=== PATIENT | female | born 1990 | race Caucasian/White ===

== ENCOUNTER 2017-07-09 00:55 | Inpatient (IN) | payer OTHER, SELFPAY ==
[2017-07-09 01:28] VITALS: BMI 27.4
[2017-07-09] MEDS ORDERED: Promethazine HCl 25 MG/ML VIAL IM/IV PRN (01:44)
--- NOTE | 2017-07-09 01:46 | PDOC.LDHP ---
Labor and Delivery H&P Chief complaint: other (HX CS X 1 and told was cleraed for trial of labor after cesrean, patient desires TOLAC.) HPI: 27 yo with prior CS x 1 in [place] for failed induction in past, due to PIH, here for contractions. She had last [place] in [place], and no care here yet. [place] [facility]. No [place], no vision changes, no LOF, no RUQ discomfort. States this child has isolated 2 vessel cord. Current gestational age (weeks): 38 (6 days) Due date: 07/12/17 Grav: 2 Para: 1 OB History Details: Last was CS in [facility]. That baby was adopted out. Current complications: none (isolated 2 vessel cord), other Current medications: pre- vitamins Previous surgical history: low tranverse CS (no record here but states cleared for TOLAC by them.) Allergies/Adverse Reactions: Allergies Allergy/AdvReac Type Severity Reaction Status Date / Time No Known Allergies Allergy Unverified 07/09/17 01:19 - Physical Exam Vital signs reviewed and normal: yes (BP 130/81) Heart: RRR Lungs: CTAB Abdomen: gravid Extremeties: no edema FHT: category 1 - Vaginal Exam cm dilated: 1 Effacement: 50% Station: -2 - Assessment Latent labor, desires TOLAC, isolated 2 vessel cord. - Plan Plan: observation in L&D, informed consent obtained, other (We will observe for now. No CS op note available but told she could have TOLAC by her verbal report. Obs for at least 2 hours, and if no progress...close outpatient follow up.)
--- NOTE | 2017-07-09 02:04 | PDOC.EVN ---
Event Note - Event Note Event Note: TOLAC CONSENT: TOLAC discussed with patient. Risks and benefits discussed. Patient cleared for TOLAC by prior MDs. Risks of uterine injury (rupture) and morbidity discussed as possible but rare events. Possible need for urgent VS, blood transfusion, discussed with her. Patient desires TOLAC after informed consent.
[2017-07-09 02:35] LABS: #Eosinphils 0.1 thou/uL (0.0-0.7); #Lymphocytes 1.4 thou/uL (1.20-3.40); #Monocytes 0.6 thou/uL (0.11-0.59); #Neutrophils 9.6 thou/uL (1.40-6.50); %Basophils 0.2 % (0.0-1.0); %Lymphocytes 12.2 % (21.0-51.0); %Monocytes 5.4 % (0.0-10.0); %Neutrophils 81.3 % (42.0-75.0); Hemoglobin 12.9 g/dL (12.0-16.0); Mean Corpuscular HGB CONC 35.1 g/dL (32.0-36.0); Mean Corpuscular Hemoglobin 30.6 pg (27.0-31.0); Mean Corpuscular Volume 87.2 fl (81.0-99.0); Mean Platelet Volume 8.9 fL (7.4-10.4); Platelet Count 121 thou/uL (130-400); RBC Distribution Width 11.7 % (11.5-14.5); Red Blood Cell (RBC) Count 4.23 mill/uL (4.20-5.40); White Blood Cell (WBC) Count 11.7 thou/uL (4.8-10.8)
[2017-07-09 03:38] LABS: HBSAg Index 0.27 S/CO (0-0.99); HIV (1/2) Antibody/Antigen Non-Reactive (NonReactive); HIV 1/2 INDEX 0.46 S/CO (<1.00); Hep B Surf Ag Non-Reactive S/CO (NonReactive)
[2017-07-09 04:37] LABS: Syphilis Antibody Nonreactive (Nonreactive)
[2017-07-09] MEDS ORDERED: HYDROcodone/Acetaminophen 5/325 mg Tablet PO PRN ×2 (05:16)
[2017-07-09] MEDS ORDERED: Lidocaine 1% (PF) 30 ML VIAL SC PRN (05:16)
[2017-07-09] MEDS ORDERED: Promethazine HCl 25 MG/ML VIAL IM PRN ×2 (05:16→10:11)
[2017-07-09] MEDS ORDERED: Ibuprofen 800 MG TAB PO PRN (05:16)
--- NOTE | 2017-07-09 05:20 | PDOC.EVN ---
Event Note - Event Note Event Note: @0515: Admit note: Patient still has not changed her cervix but she is hurting with each contraction, and they are regular. We will admit her for TOLAC and for allen management. GBS unknown, will use risk factor protocol (no risk factors at this point).
[2017-07-09] MEDS: Lactated Ringer's 1,000 ML IV SCH ×3 (06:22→12:35)
[2017-07-09] MEDS ORDERED: Bupivacaine 0.5% 20 ML, Fentanyl 400 MCG in Sodium Chloride 0.9% 72 ML EPIDURAL SCH (07:15)
[2017-07-09] MEDS ORDERED: [UNRECOGNIZED DRUG - REMARK] FS SCH (07:15)
[2017-07-09] MEDS ORDERED: Morphine 10 MG/ML VIAL ONE (09:10)
[2017-07-09] MEDS ORDERED: Morphine 4 MG/ML Carpuject SLOW IVP SCH (09:15)
[2017-07-09] MEDS: Ondansetron HCl/PF 4 MG/2 ML Vial IVP PRN ×2 (09:25→15:40)
[2017-07-09] MEDS ORDERED: Morphine 2 MG/ML SYRINGE SLOW IVP SCH (09:45)
[2017-07-09] MEDS ORDERED: diphenhydrAMINE 50 MG/ML VIAL IVP PRN (10:11)
[2017-07-09] MEDS ORDERED: Naloxone HCl 0.4 mg/ml Vial IVP PRN ×2 (10:11)
[2017-07-09] MEDS ORDERED: Ondansetron HCl/PF 4 MG/2 ML Vial IVP PRN ×2 (10:11→18:16)
[2017-07-09] MEDS ORDERED: Lactated Ringer's 500 ML IV PRN (10:11)
[2017-07-09] MEDS ORDERED: ePHEDrine/0.9% NaCl/PF SYRINGE 50 mg/10 ml SLOW IVP PRN (10:11)
[2017-07-09] MEDS ORDERED: Acetaminophen 325 MG TAB PO PRN (10:11)
[2017-07-09] MEDS ORDERED: Eucerin (Mineral Oil/Petrolatum,White) 30 gm Jar TOP PRN (10:11)
[2017-07-09] MEDS ORDERED: Communication Order-Pharmacy FS SCH (10:15)
[2017-07-09] MEDS ORDERED: Fentanyl 4mcg/Marcaine 0.1% Cassette 100 ML EPIDURAL SCH (10:15)
[2017-07-09] MEDS: Morphine 2 MG/ML SYRINGE SLOW IVP SCH ×3 (13:54→17:52)
[2017-07-09] MEDS: LR / Pitocin 40 units/1000 ml 1,000 ML IV PRN ×2 (16:29→17:19)
--- NOTE | 2017-07-09 17:05 | OP ---
DATE OF ENCOUNTER: 07/09/2017 FINDINGS: The patient delivered a male by uncomplicated term spontaneous vaginal delivery on 07/09/2017 at 1552. Apgars were 8 and 9. Weight is unavailable at time of dictation. Placenta deli lindsey spontaneously followed by Pitocin infusion. There were no lacerations. ESTIMATED BLOOD LOSS: [address] Phillips is the delivering physician. Mother and baby are stable and the room in the immediate po stpartum.
[2017-07-09] MEDS ORDERED: Adacel (T-DAP) 0.5 ML VIAL IM ONE (18:16)
[2017-07-09] MEDS ORDERED: Lanolin Ointment 7 GM TUBE TOP PRN (18:16)
[2017-07-09] MEDS ORDERED: LR / Pitocin 40 units/1000 ml 1,000 ML IV SCH (18:16)
[2017-07-09] MEDS ORDERED: Benzocaine/Menthol 20-0.5% 60 ML CAN TOP PRN (18:16)
[2017-07-09] MEDS ORDERED: Acetaminophen/Codeine 30-300mg Tablet PO PRN ×2 (18:16)
[2017-07-09] MEDS ORDERED: Milk Of Magnesia 30 ML UDCUP PO PRN (18:16)
[2017-07-09] MEDS ORDERED: Bisacodyl 10 MG SUPP PR PRN (18:16)
[2017-07-09 19:02] LABS: #Eosinphils 0.1 thou/uL (0.0-0.7); #Lymphocytes 1.5 thou/uL (1.20-3.40); #Monocytes 0.9 thou/uL (0.11-0.59); #Neutrophils 12.4 thou/uL (1.40-6.50); %Basophils 0.1 % (0.0-1.0); %Eosinophils 0.5 % (0.0-10.0); %Monocytes 5.8 % (0.0-10.0); %Neutrophils 83.5 % (42.0-75.0); Hemoglobin 11.7 g/dL (12.0-16.0); Mean Corpuscular HGB CONC 34.2 g/dL (32.0-36.0); Mean Corpuscular Hemoglobin 29.8 pg (27.0-31.0); Mean Corpuscular Volume 87.2 fl (81.0-99.0); Mean Platelet Volume 9.2 fL (7.4-10.4); Platelet Count 110 thou/uL (130-400); RBC Distribution Width 11.9 % (11.5-14.5); Red Blood Cell (RBC) Count 3.92 mill/uL (4.20-5.40); White Blood Cell (WBC) Count 14.8 thou/uL (4.8-10.8)
[2017-07-09] MEDS: Docusate Calcium (SURFAK) 240 MG CAP PO SCH (21:28)
[2017-07-09] MEDS: Ibuprofen 800 MG TAB PO SCH (21:29)
[2017-07-10] MEDS: Ibuprofen 800 MG TAB PO SCH ×2 (05:27→14:23)
[2017-07-10] MEDS: Ferrous Sulfate 325 MG TAB PO SCH ×2 (05:27→08:20)
[2017-07-10 06:02] LABS: Hemoglobin 10.7 g/dL (12.0-16.0); Mean Corpuscular HGB CONC 32.4 g/dL (32.0-36.0); Mean Corpuscular Hemoglobin 28.9 pg (27.0-31.0); Mean Platelet Volume 9.1 fL (7.4-10.4); Platelet Count 108 thou/uL (130-400); White Blood Cell (WBC) Count 10.8 thou/uL (4.8-10.8)
--- NOTE | 2017-07-10 08:45 | PRG ---
DATE OF SERVICE: 07/10/2017 HISTORY: The patient is day #1, status post a successful vaginal after del carolyn at term. She reports no complications overnight. She is tolerating p.o., voiding on her own, having decreased lochia. Her hemoglobin is 10.7 and hematocrit 32.9, platelets 108,000. PHYSICAL EXAMINATION: VITAL SIGNS: Blood pressure is 107/60, temperature 98.5, pulse is 70, respiratory rate of 18. GENERAL: She appears to be in no acute distress. She is alert and oriented, cooperative and pleasan t to interact with. HEENT: Normocephalic, atraumatic. ABDOMEN: Fundus is firm at the umbilicus. EXTREMITIES: Nontender, nonedematous. ASSESSMENT AND PLAN: The patient is day #1, status post a successful vaginal after at term. Anticipate discharge tomorrow with a follow up with [facility]. The patient does desire to discharge home today if possible. Delivery was at 5:00 p.m. roughly last night. If the patient does go home she has been given instructions to follow up with [facility] in 6 weeks or sooner if she experiences fever, increasing pain or bleeding. She does not hav e an established HOG SCALDER or OB provider here in the community as she has recently moved here from the [facility]. The patient has been given instructions. The patient will be discharged home on ibuprof en over the counter if she does discharge today. We have asked Ms. Lawrence to notify her nursing staff this evening if she does have a desire still to discharge home and will notify nursery of her rajeshen t desire.
[2017-07-10] MEDS: Docusate Calcium (SURFAK) 240 MG CAP PO SCH (09:41)
[2017-07-10 11:22] VITALS: BP 113/67; TEMP 98.8
--- NOTE | 2017-07-18 08:59 | DIS ---
DATE OF ADMISSION: 07/09/2017 DATE OF DISCHARGE: 07/10/2017 PROCEDURE: Spontaneous vaginal delivery. HOSPITAL COURSE: The patient was admitted on 07/09/2018 in labor. She proceeded to have a successfu l without complications of a male infant, Apgars 8 and 9. She had an epidural for pain relief. There were no lacerations. On day #1, the patient was doing well and [facility]. She was discharged home to follow up with [facility] [place] for a appointment. DIET: Regular. ACTIVITIES: Pelvic rest until appointment. INSTRUCTIONS: Call Labor and Delivery or the clinic for fever greater than 100.4, heavy vaginal blee ding, problems with urination or other concerns.
== END 2017-07-10 18:06 | disposition home or self-care (01) | DRG 775 ==
LOC: L&D/OP 00:55 → L&D 05:21 → 3SW 18:32
PROVIDERS: ADMIT Obstetrics & Gynecology; ATTEND Obstetrics & Gynecology
PROC: 10E0XZZ Delivery of Products of Conception, External Approach (ICD-10-PCS; principal; 2017-07-09)
DX: O34.219 Maternal care for unspecified type scar from previous cesarean delivery (principal); N85.8 Other specified noninflammatory disorders of uterus; Z3A.40 40 weeks gestation of pregnancy; Z37.0 Single live birth
CPT/HCPCS: 36415; 51702; 76815; 85025; 85027; 86780; 86850; 86900; 86901; 87340; 87389; 90715; 99285; J0595; J2001; J2270; J2405; J2550; J3010; J3490; J7050

== ENCOUNTER 2018-09-24 16:00 | Inpatient (IN) | payer OTHER ==
--- NOTE | 2018-09-24 11:55 | PDOC.LDHP ---
Labor and Delivery H&P Chief complaint: scheduled induction HPI: 28 yo @ 39w5d by 8 week CRL who presents for IOL for TOLAC. Pt has h/o LTCS x1 in 2013 for failed IOL due to preE and x1 in 2018. Pt on ASA due to h/o preE. Pt has been counseled and desires TOLAC. Otherwise, her antepartum course has been benign. Current gestational age (weeks): 39 Due date: 09/26/18 Dating criteria: first trimester ultrasound Grav: 3 Para: 2 OB History Details: 2013- LTCS for failed IOL 2018- Current complications: none Abnormal US findings: No Past Medical History: Denies Current medications: pre- vitamins Previous surgical history: low tranverse CS (x1) Allergies/Adverse Reactions: Allergies Allergy/AdvReac Type Severity Reaction Status Date / Time No Known Allergies Allergy Unverified 07/09/17 01:19 Social history: none - Physical Exam Vital signs reviewed and normal: yes General: NAD Heart: RRR Lungs: nonlabored breathing Abdomen: gravid Extremeties: no edema FHT: category 1 (120s, mod gabby, +accels, no decels) [place] contractions every: q2-3 min - Vaginal Exam cm dilated: 6 (balloon removed, AROM clear ) Effacement: 75% Station: -2 - OB Labs Blood type: O RH: positive Antibody Screen: negative HIV: negative RPR: negative HEPSAg: negative 1 hour GCT: negative GBS: negative Urine drug screen: negative Rubella: immune - Assessment 39w5d IUP H/O LTCS x1 and x1 Admit for IOL for TOLAC - Plan Plan: admit to L&D, cervical ripening (s/p balloon), labor augmentation if indicated, informed consent obtained, anesthesia consult for pain management -: Continuous EFM. Internals as indicated. Continue pitocin .
[2018-09-24] MEDS ORDERED: Ibuprofen 800 MG TAB PO PRN (22:50)
[2018-09-24] MEDS ORDERED: Misoprostol 200 MCG TAB PR PRN (22:50)
[2018-09-24] MEDS ORDERED: NS / Oxytocin 40 units/1000ml 1,000 ML IV PRN (22:50)
[2018-09-24] MEDS ORDERED: Carboprost 250 MCG/ML AMP IM PRN (22:50)
[2018-09-24] MEDS ORDERED: Ondansetron PF 4 MG/2 ML Vial IVP PRN (22:50)
[2018-09-24] MEDS ORDERED: Acetaminophen 500 MG TAB PO PRN (22:50)
[2018-09-24] MEDS ORDERED: Diphenoxylate HCl/Atropine Tablet PO PRN (22:50)
[2018-09-24] MEDS ORDERED: Lidocaine 1% (PF) 30 ML VIAL SC PRN (22:50)
[2018-09-24] MEDS ORDERED: HYDROcodone/Acetaminophen 5/325 mg Tablet PO PRN (22:50)
[2018-09-24] MEDS ORDERED: Promethazine HCl 25 MG/ML VIAL IM PRN (22:50)
[2018-09-24] MEDS ORDERED: Methylergonovine 0.2 MG/ML VIAL IM PRN (22:50)
[2018-09-24] MEDS: Lactated Ringer's 1,000 ML IV SCH (23:10)
[2018-09-24 23:14] VITALS: BMI 28.9
[2018-09-24 23:42] LABS: Hemoglobin 13.4 g/dL (12.0-16.0); Mean Corpuscular HGB CONC 34.5 g/dL (32.0-36.0); Mean Corpuscular Hemoglobin 32.1 pg (27.0-31.0); Mean Platelet Volume 10.5 fL (7.4-10.4); Platelet Count 112 thou/uL (130-400); RBC Distribution Width 12.1 % (11.5-14.5); Red Blood Cell (RBC) Count 4.17 mill/uL (4.20-5.40); White Blood Cell (WBC) Count 11.5 thou/uL (4.8-10.8)
[2018-09-25 00:03] LABS: HBSAg Index 0.49 S/CO (0-0.99); HIV (1/2) Antibody/Antigen Non-Reactive (NonReactive); HIV 1/2 INDEX 0.17 S/CO (<1.00); Hep B Surf Ag Non-Reactive S/CO (NonReactive); Syphilis Antibody Nonreactive (Nonreactive); Syphilis Antibody Index 0.22 S/CO (<1.00 Non-Reactive)
[2018-09-25] MEDS: Butorphanol Tartrate 1 MG/ML VIAL SLOW IVP PRN ×2 (02:14→04:10)
[2018-09-25] MEDS ORDERED: Fentanyl 4 mcg/Bup 0.1% Cadd 100 ML ONE (05:48)
[2018-09-25] MEDS: Lactated Ringer's 1,000 ML IV SCH ×2 (05:59→08:50)
[2018-09-25] MEDS ORDERED: Acetaminophen 325 MG TAB PO PRN (06:41)
[2018-09-25] MEDS ORDERED: Naloxone HCl 0.4 mg/ml Vial IVP PRN ×2 (06:41)
[2018-09-25] MEDS ORDERED: Ondansetron PF 4 MG/2 ML Vial IVP PRN (06:41)
[2018-09-25] MEDS ORDERED: ePHEDrine/0.9% NaCl/PF SYRINGE 50 mg/10 ml SLOW IVP PRN (06:41)
[2018-09-25] MEDS ORDERED: diphenhydrAMINE 50 MG/ML VIAL IVP PRN (06:41)
[2018-09-25] MEDS ORDERED: Lactated Ringer's 500 ML IV PRN (06:41)
[2018-09-25] MEDS ORDERED: Promethazine HCl 25 MG/ML VIAL IM PRN (06:41)
[2018-09-25] MEDS ORDERED: Communication Order-Pharmacy FS SCH (06:45)
[2018-09-25] MEDS ORDERED: Fentanyl 4 mcg/Bupivacaine 0.1% Cassette 100 ML EPIDURAL SCH (06:45)
[2018-09-25] MEDS: NS w/ Oxytocin 10 units 500 ML IV SCH (07:03)
--- NOTE | 2018-09-25 10:37 | PDOC.OPDEL ---
OB Operative/Delivery Note Delivery Dr/Surgeon: Sarah Brown DO Pre-Delivery Diagnosis: elective induction Procedure/Post Delivery Dx: vaginal delivery after CS Weeks gestation: 39 Anesthesia: epidural - Findings A Sex: female - 1 min: 8 - 5 min: 9 - Additional Findings/Plan Placenta delivered: spontaneous Repaired Obstetrical Laceration: none Estimated blood loss: QBL 152 cc Compilations/Other Findings: in cephalic presentation, TAHIRA position. Normal appearing placenta. Post delivery plan: routine recovery
[2018-09-25] MEDS ORDERED: Benzocaine-Menthol 82.5 ML CAN TOP PRN (12:49)
[2018-09-25] MEDS ORDERED: NS / Oxytocin 40 units/1000ml 1,000 ML IV SCH (12:49)
[2018-09-25] MEDS ORDERED: Bisacodyl 10 MG SUPP PR PRN (12:49)
[2018-09-25] MEDS ORDERED: Acetaminophen/Codeine 30-300mg Tablet PO PRN (12:49)
[2018-09-25] MEDS ORDERED: Milk Of Magnesia 30 ML UDCUP PO PRN (12:49)
[2018-09-25] MEDS: Ibuprofen 800 MG TAB PO SCH ×2 (13:21→21:53)
[2018-09-25] MEDS ORDERED: Bupivacaine/Epinephrine 0.25% 30 ML VIAL ONE (18:00)
[2018-09-25] MEDS: Docusate Calcium (SURFAK) 240 MG CAP PO SCH (21:53)
[2018-09-26] MEDS: Ibuprofen 800 MG TAB PO SCH (05:28)
[2018-09-26 05:35] VITALS: BP 109/59; TEMP 97.7
--- NOTE | 2018-09-26 07:57 | PDOC.PP ---
Post Progress Note Post Day #: 1 Subjective: No concerns. Minimal pain and lochia. Breast feeding. PO intake tolerated: yes Flatus: yes Ambulation: yes Vital Signs (12 hours) Temp Pulse Resp BP Pulse Ox 09/26/18 05:31 97.7 F 71 16 109/59 L 98 09/25/18 23:15 98.0 F 67 16 123/77 98 Weight Weight 158 lb - Physical Examination General: NAD Cardiovascular: RRR Respiratory: non-labored breathing Abdominal: appropriately TTP Fundus firm & at: below umbilicus Extremities: negative homans (B) Neurological: no gross focal deficits Psychiatric: A&Ox3, normal affect Result Diagrams: 09/24/18 23:18 Additional Labs: Post Labs Blood Type O POSITIVE 09/24/18 23:18 Hep Bs Antigen Non-Reactive S/CO (NonReactive) 09/24/18 23:18 (1) (vaginal after ) Code(s): O34.219 - MATERNAL CARE FOR UNSP TYPE SCAR FROM PREVIOUS DEL Status: Acute - Assessment/Plan PPD1 VSSAF Meeting requirements for d/c today. F/U 6 weeks.
[2018-09-26] MEDS: NS w/ Oxytocin 10 units 500 ML IV SCH (07:58)
[2018-09-26] MEDS: Docusate Calcium (SURFAK) 240 MG CAP PO SCH (09:19)
[2018-09-26 09:31] LABS: Hemoglobin 12.3 g/dL (12.0-16.0); Mean Corpuscular Hemoglobin 32.7 pg (27.0-31.0); Mean Corpuscular Volume 93.5 fL (78.0-98.0); Mean Platelet Volume 9.9 fL (7.4-10.4); Platelet Count 96 thou/uL (130-400); RBC Distribution Width 12.2 % (11.5-14.5); Red Blood Cell (RBC) Count 3.76 mill/uL (4.20-5.40); White Blood Cell (WBC) Count 9.8 thou/uL (4.8-10.8)
== END 2018-09-26 12:21 | disposition home or self-care (01) | DRG 807 ==
LOC: L&D 22:32 → 3SE 09-25 12:30
PROVIDERS: ADMIT Obstetrics & Gynecology; ATTEND Obstetrics & Gynecology
PROC: 10E0XZZ Delivery of Products of Conception, External Approach (ICD-10-PCS; principal; 2018-09-25)
PROC: 0U7C7ZZ Dilation of Cervix, Via Natural or Artificial Opening (ICD-10-PCS; 2018-09-25)
DX: O34.219 Maternal care for unspecified type scar from previous cesarean delivery (principal); Z37.0 Single live birth; Z3A.39 39 weeks gestation of pregnancy
CPT/HCPCS: 36415; 51702; 85027; 86780; 86850; 86900; 86901; 87340; 87389; C1726; J0595; J2405; J2590